=== PATIENT | female | born 1955 | race Caucasian/White ===

== ENCOUNTER 2025-04-02 01:50 | Outpatient (CLI) | payer MEDICARE, SELFPAY ==
--- NOTE | 2025-04-02 | DI.NM_ITS ---
Exam(s) NM PARATHYROID SCAN CLINICAL HISTORY: COMPARISON: No exams were available for comparison EXAMINATION: DUAL PHASE parathyroid imaging was performed after IV injection of 20 mCi technetium 99 sestamibi Imaging was performed at 15 minutes and 2 hours post injection Field of view also includes the mediastinum. FINDINGS: Scintigraphic images are submitted for interpretation. There are no prior imaging studies of the neck/thyroid region in our PACS Initial imaging demonstrates relatively symmetric thyroid uptake with the exception of some increased focal activity apparent towards the inferior aspect of the left thyroid lobe. There are no obvious ectopic foci of sestamibi uptake in the mediastinum. Delayed 2 hour imaging demonstrates adequate washout from the right thyroid lobe region but there is a significant sustained radiopharmaceutical focus in the region of the inferior aspect of the left th yroid lobe region. There are bilateral oblique views supplied but no lateral view. The oblique views reveal that the focus of increased uptake is intimately associated with the inferio r aspect of the left thyroid lobe. There is no evidence of multiple parathyroid gland disease nor obvious ectopic mediastinal disease. IMPRESSION: 1. 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 2. As the next step I recommend dedicated thyroid ultrasound to ensure that there is no significant n odule with in the inferior aspect of the left thyroid lobe, as retention of technetium 99 sestamibi i n some thyroid nodules may mimic parathyroid tumors (Charles et al, 2005).
== END 2025-04-02 02:10 ==
LOC: DI 01:50
PROVIDERS: PCP Family Medicine; Visit Provider Family Medicine
DX: R79.89 Other specified abnormal findings of blood chemistry (principal); D35.1 Benign neoplasm of parathyroid gland
CPT/HCPCS: 78070